=== PATIENT | male | born 1985 | race Asian ===

== ENCOUNTER 2019-08-02 15:36 | Emergency (ER) | payer MEDICAID ==
[~2019-08-02] VITALS: Ht 175.3 cm; Wt 72.0 kg
[2019-08-02 21:16] VITALS: BP 113/74
== END 2019-08-02 22:15 | disposition home or self-care (01) ==
LOC: ER 15:36
DX: S06.0X9A Concussion with loss of consciousness of unspecified duration, initial encounter (principal); S00.81XA Abrasion of other part of head, initial encounter; S09.8XXA Other specified injuries of head, initial encounter; S16.1XXA Strain of muscle, fascia and tendon at neck level, initial encounter; R51 Headache; W10.9XXA Fall (on) (from) unspecified stairs and steps, initial encounter; Y93.01 Activity, walking, marching and hiking; Y92.9 Unspecified place or not applicable
CPT/HCPCS: 70486; 70490; 99284